=== PATIENT | male | born 1995 | race Caucasian/White ===

== ENCOUNTER 2020-06-20 14:24 | Emergency (ER) | payer SELFPAY ==
[~2020-06-20] VITALS: Ht 167.6 cm; Wt 88.5 kg
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
[2020-06-20] MEDS ORDERED: BACITRACIN ZINC OINT PACKET 1 EA PACKET TP ONE ×2 (15:00→15:31)
--- NOTE | 2020-06-20 16:00 | NUR ---
WOUND CARE DONE
--- NOTE | 2020-06-20 16:24 | NUR ---
Patient discharged to home in stable condition. Written and verbal after care instructions given. Patient verbalizes understanding of instruction.
[2020-06-20 16:25] VITALS: BP 132/78
== END 2020-06-20 16:26 | disposition home or self-care (01) ==
LOC: ER 14:27
DX: S61.011A Laceration without foreign body of right thumb without damage to nail, initial encounter (principal); Z88.2 Allergy status to sulfonamides; X58.XXXA Exposure to other specified factors, initial encounter; Y93.89 Activity, other specified; Y92.89 Other specified places as the place of occurrence of the external cause; Y99.8 Other external cause status